=== PATIENT | female | born 1990 | race Caucasian/White ===

== ENCOUNTER 2017-12-23 09:46 | Day surgery (SDC) | payer OTHER, BC ==
[~2017-12-23 09:46] MED LIST: Lactated Ringers 1,000 ML IV SCH
[2017-12-23] MEDS ORDERED: Ondansetron 4 MG/2 ML SDV IVPUSH ONE (10:31)
[2017-12-23] MEDS ORDERED: Haloperidol Lactate 5 MG/ML SDV IM ONE (10:31)
--- NOTE | 2017-12-23 10:39 | PCM.PREANE ---
Preanesthetic Assessment - Anesthesia/Transfusion/Family Hx Anesthesia History: Prior Anesthesia Without Reaction Family History of Anesthesia Reaction: No Transfusion History: No Prior Transfusion(s) - Review of Systems General: No Symptoms Pulmonary: No Symptoms Cardiovascular: No Symptoms Gastrointestinal: Abdominal Pain, Nausea Neurological: No Symptoms Other: Reports: None - Physical Assessment NPO Status Date: 12/22/17 Height: 1.6 m Weight: 80.286 kg ASA Class: 2 Mental Status: Alert & Oriented x3 Airway Class: Mallampati = 2 Dentition: Reports: Normal Dentition ROM/Head Extension: Full Lungs: Clear to Auscultation, Normal Respiratory Effort Cardiovascular: Regular Rate, Regular Rhythm - Allergies Allergies/Adverse Reactions: Allergies Allergy/AdvReac Type Severity Reaction Status Date / Time amoxicillin Allergy Tachycardia Verified 12/16/17 13:56 codeine Allergy Vomiting Verified 12/16/17 13:56 hydrocodone Allergy Vomiting Verified 12/16/17 13:56 Sulfa (Sulfonamide Allergy rashes Verified 12/16/17 13:56 Antibiotics) - Anesthesia Plan Pre-Op Medication Ordered: Other (iv dilaudid, and zofran and haldol) - Acknowledgements Anesthesia Type Planned: General Anesthesia Pt an Appropriate Candidate for the Planned Anesthesia: Yes Alternatives and Risks of Anesthesia Discussed w Pt/Guardian: Yes Pt/Guardian Understands and Agrees with Anesthesia Plan: Yes PreAnesthesia Questionnaire Other HEENT History: has upper and lower front permanent retainers, wears glasses Cardiovascular History: Reports: None Respiratory History: Reports: None Gastrointestinal History: Reports: GERD Genitourinary History: Reports: None WAFER SLICER History: Reports: None Musculoskeletal History: Reports: None Neurological History: Reports: Other (See Below) Other Neuro History: hx of motion sickness Psychiatric History: Reports: Anxiety, Depression Endocrine/Metabolic History: Reports: Hypothyroidism, Obesity/BMI 30+ Oncologic (Cancer) History: Reports: None Dermatologic History: Reports: Eczema - Infectious Disease History Infectious Disease History: Reports: Chicken Pox - Past Surgical History HEENT Surgical History: Reports: Tonsillectomy GI Surgical History: Reports: Cholecystectomy Female Surgical History: Reports: Breast Biopsy - SUBSTANCE USE Smoking Status *Q: Never Smoker Recreational Drug Use History: No - HOME MEDS Home Medications: Home Meds FLUoxetine [PROzac] 80 mg PO QAM 06/09/15 [History] Levothyroxine 25 mcg PO DAILY 06/09/15 [History] buPROPion [Wellbutrin SR] 150 mg PO QAM 06/09/15 [History] - CURRENT (IN HOUSE) MEDS Current Meds: Current Medications Haloperidol Lactate (Haldol) 0.5 mg IM ONETIME ONE Stop: 12/23/17 10:32 Hydromorphone HCl (Dilaudid) 2 mg IVPUSH ONETIME PRN PRN Reason: Pain (moderate 4-6) Lactated Ringer's (Ringers, Lactated) 1,000 mls @ 100 mls/hr IV ASDIRECTED [facility] Ondansetron HCl (Zofran) 4 mg IVPUSH ONETIME ONE Stop: 12/23/17 10:32
[2017-12-23] MEDS: HYDROmorphone 2 MG/ML SDV IVPUSH PRN ×2 (10:52→11:19)
[2017-12-23 11:06] LABS: CHLORIDE,CL 107 mmol/L (98-107); SODIUM,NA 139 mmol/L (136-145)
[2017-12-23] MEDS ORDERED: Rocuronium 10 MG/ML 10 ML Syringe ONE (12:22)
[2017-12-23] MEDS ORDERED: Glycopyrrolate 0.2 MG/ML SDV ONE (12:22)
[2017-12-23] MEDS ORDERED: Neostigmine Methylsulfate 1 MG/ML 5 ML Syringe ONE (12:22)
[2017-12-23] MEDS ORDERED: Ondansetron 4 MG/2 ML SDV ONE (12:22)
[2017-12-23] MEDS ORDERED: Ketorolac 30 MG/ML SDV ONE (12:22)
[2017-12-23] MEDS ORDERED: Midazolam 1 MG/ML 2 ML SDV ONE (12:23)
[2017-12-23] MEDS ORDERED: Propofol 200 MG/20 ML SDV ONE (12:23)
[2017-12-23] MEDS ORDERED: fentaNYL 100 MCG/2 ML SDV ONE ×3 (12:23→14:02)
[2017-12-23] MEDS ORDERED: Succinylcholine 200 MG/10 ML MDV ONE (12:39)
[2017-12-23] MEDS ORDERED: Octyl 2-Cyanoacrylate 1 Tube ONE (13:23)
[2017-12-23] MEDS ORDERED: Dexamethasone 4 MG/ML 5 ML MDV ONE (13:31)
[2017-12-23] MEDS ORDERED: Promethazine 25 MG/ML SDV IM PRN (13:37)
[2017-12-23] MEDS ORDERED: Ketorolac 30 MG/ML SDV IVPUSH ONE (13:37)
[2017-12-23] MEDS ORDERED: Morphine 4 MG/ML Syringe IVPUSH PRN (13:37)
[2017-12-23] MEDS ORDERED: Ketorolac 30 MG/ML SDV IVPUSH PRN (13:37)
[2017-12-23] MEDS ORDERED: Ondansetron 4 MG/2 ML SDV IVPUSH PRN (13:37)
[2017-12-23] MEDS ORDERED: Acetaminophen/oxyCODONE 325-5 MG Tab PO PRN ×2 (13:37)
[2017-12-23] MEDS ORDERED: Sugammadex Sodium 200 MG/2 ML VIAL ONE (13:39)
--- NOTE | 2017-12-23 13:44 | PCM.OPNOTE ---
- General Post-Op/Procedure Note Date of Surgery/Procedure: 12/23/17 Operative Procedure(s): Dignostis Laparoscopy Pre Op Diagnosis: Pelvic pain Post-Op Diagnosis: Same Anesthesia Technique: General ET Tube Primary Surgeon: Carlos Dockery EBL in mLs: 25 Complications: None Condition: Good
--- NOTE | 2017-12-23 13:45 | PCM.DCSUM1 ---
Discharge Summary - Discharge Data Discharge Date: 12/23/17 Discharge Disposition: Home, Self-Care 01 Condition: Good - Patient Summary/Data Operative Procedure(s) Performed: Dignostis Laparoscopy - Patient Instructions Diet: Usual Diet as Tolerated Driving: May Drive Today, Do Not Drive Showering/Bathing: May Shower Notify Provider of: Fever, Increased Pain, Nausea and/or Vomiting - Discharge Plan Home Medications: Home Meds FLUoxetine [PROzac] 80 mg PO QAM 06/09/15 [History] Levothyroxine 25 mcg PO DAILY 06/09/15 [History] buPROPion [Wellbutrin SR] 150 mg PO QAM 06/09/15 [History] - General Info Date of Service: 12/23/17 Functional Status: Reports: Pain Controlled - Review of Systems General: Reports: No Symptoms HEENT: Reports: No Symptoms Pulmonary: Reports: No Symptoms Cardiovascular: Reports: No Symptoms Gastrointestinal: Reports: No Symptoms Genitourinary: Reports: No Symptoms Musculoskeletal: Reports: No Symptoms Skin: Reports: No Symptoms Neurological: Reports: No Symptoms Psychiatric: Reports: No Symptoms - Patient Data Weight - Most Recent: 80.286 kg Lab Results - Last 24 hrs: Laboratory Results - last 24 hr 12/23/17 12/23/17 12/23/17 Range/Units 10:20 10:20 10:20 WBC 6.88 (4.0-11.0) K/uL RBC 4.28 L (4.30-5.90) M/uL Hgb 13.1 (12.0-16.0) g/dL Hct 39.0 (36.0-46.0) % MCV 91.1 (80.0-98.0) fL MCH 30.6 (27.0-32.0) pg MCHC 33.6 (31.0-37.0) g/dL RDW Std Deviation 40.2 (28.0-62.0) fl RDW Coeff of Bonnie 12 (11.0-15.0) % Plt Count 234 (150-400) K/uL MPV 9.50 (7.40-12.00) fL Neut % (Auto) 66.5 (48.0-80.0) % Lymph % (Auto) 24.0 (16.0-40.0) % Lee % (Auto) 7.3 (0.0-15.0) % Eos % (Auto) 1.9 (0.0-7.0) % Baso % (Auto) 0.3 (0.0-1.5) % Neut # (Auto) 4.6 (1.4-5.7) K/uL Lymph # (Auto) 1.7 (0.6-2.4) K/uL Lee # (Auto) 0.5 (0.0-0.8) K/uL Eos # (Auto) 0.1 (0.0-0.7) K/uL Baso # (Auto) 0.0 (0.0-0.1) K/uL Sodium 139 (136-145) mmol/L Potassium 4.1 (3.5-5.1) mmol/L Chloride 107 (98-107) mmol/L Carbon Dioxide 22.9 (21.0-32.0) mmol/L BUN 13 (7.0-18.0) mg/dL Creatinine 1.1 H (0.6-1.0) mg/dL Est Cr Clr Drug Dosing 64.11 mL/min Estimated GFR (MDRD) > 60.0 ml/min Glucose 86 (74-106) mg/dL Calcium 8.7 (8.5-10.1) mg/dL Total Bilirubin 0.3 (0.2-1.0) mg/dL AST 16 (15-37) IU/L ALT 14 (14-63) IU/L Alkaline Phosphatase 35 L (46-116) U/L Total Protein 6.4 (6.4-8.2) g/dL Albumin 3.3 L (3.4-5.0) g/dL Globulin 3.1 (2.0-3.5) g/dL Albumin/Globulin Ratio 1.1 L (1.3-2.8) HCG, Qual (NEG) Blood Type AB POSITIVE Antibody Screen NEGATIVE 12/23/17 Range/Units 11:05 WBC (4.0-11.0) K/uL RBC (4.30-5.90) M/uL Hgb (12.0-16.0) g/dL Hct (36.0-46.0) % MCV (80.0-98.0) fL MCH (27.0-32.0) pg MCHC (31.0-37.0) g/dL RDW Std Deviation (28.0-62.0) fl RDW Coeff of Bonnie (11.0-15.0) % Plt Count (150-400) K/uL MPV (7.40-12.00) fL Neut % (Auto) (48.0-80.0) % Lymph % (Auto) (16.0-40.0) % Lee % (Auto) (0.0-15.0) % Eos % (Auto) (0.0-7.0) % Baso % (Auto) (0.0-1.5) % Neut # (Auto) (1.4-5.7) K/uL Lymph # (Auto) (0.6-2.4) K/uL Lee # (Auto) (0.0-0.8) K/uL Eos # (Auto) (0.0-0.7) K/uL Baso # (Auto) (0.0-0.1) K/uL Sodium (136-145) mmol/L Potassium (3.5-5.1) mmol/L Chloride (98-107) mmol/L Carbon Dioxide (21.0-32.0) mmol/L BUN (7.0-18.0) mg/dL Creatinine (0.6-1.0) mg/dL Est Cr Clr Drug Dosing mL/min Estimated GFR (MDRD) ml/min Glucose (74-106) mg/dL Calcium (8.5-10.1) mg/dL Total Bilirubin (0.2-1.0) mg/dL AST (15-37) IU/L ALT (14-63) IU/L Alkaline Phosphatase (46-116) U/L Total Protein (6.4-8.2) g/dL Albumin (3.4-5.0) g/dL Globulin (2.0-3.5) g/dL Albumin/Globulin Ratio (1.3-2.8) HCG, Qual NEGATIVE (NEG) Blood Type Antibody Screen Med Orders - Current: Current Medications Hydromorphone HCl (Dilaudid) 2 mg IVPUSH ONETIME PRN PRN Reason: Pain (moderate 4-6) Last Admin: 12/23/17 11:19 Dose: 2 mg Lactated Ringer's (Ringers, Lactated) 1,000 mls @ 100 mls/hr IV ASDIRECTED KAYLYN Last Admin: 12/23/17 10:15 Dose: 100 mls/hr Ketorolac Tromethamine (Toradol) 30 mg IVPUSH ONETIME ONE Stop: 12/23/17 13:38 Ketorolac Tromethamine (Toradol) 30 mg IVPUSH Q6H PRN PRN Reason: Pain (severe 7-10) Stop: 12/28/17 13:37 Morphine Sulfate (Morphine) 4 mg IVPUSH Q2H PRN PRN Reason: Pain (severe 7-10) Ondansetron HCl (Zofran) 4 mg IVPUSH Q6H PRN PRN Reason: Nausea/Vomiting Oxycodone/Acetaminophen (Percocet 325-5 Mg) 1 tab PO Q4H PRN PRN Reason: Pain (moderate 4-6) Oxycodone/Acetaminophen (Percocet 325-5 Mg) 2 tab PO Q4H PRN PRN Reason: Pain (moderate 4-6) Promethazine HCl (Phenergan) 25 mg IM Q6H PRN PRN Reason: Nausea/Vomiting Discontinued Medications Dexamethasone (Dexamethasone) Confirm Administered Dose 20 mg .ROUTE .STK-MED ONE Stop: 12/23/17 13:32 Fentanyl (Sublimaze) Confirm Administered Dose 100 mcg .ROUTE .STK-MED ONE Stop: 12/23/17 12:24 Fentanyl (Sublimaze) Confirm Administered Dose 100 mcg .ROUTE .STK-MED ONE Stop: 12/23/17 12:24 Glycopyrrolate (Robinul) Confirm Administered Dose 0.8 mg .ROUTE .STK-MED ONE Stop: 12/23/17 12:23 Haloperidol Lactate (Haldol) 0.5 mg IM ONETIME ONE Stop: 12/23/17 10:32 Last Admin: 12/23/17 11:39 Dose: 0.5 mg Ketorolac Tromethamine (Toradol) Confirm Administered Dose 30 mg .ROUTE .STK- MED ONE Stop: 12/23/17 12:23 Lidocaine HCl (Xylocaine-Mpf 1%) Confirm Administered Dose 5 ml .ROUTE .STK-MED ONE Stop: 12/23/17 12:23 Midazolam HCl (Versed 1 Mg/Ml) Confirm Administered Dose 2 mg .ROUTE .STK-MED ONE Stop: 12/23/17 12:24 Neostigmine Methylsulfate (Neostigmine) Confirm Administered Dose 5 mg .ROUTE .STK-MED ONE Stop: 12/23/17 12:23 Octyl Cyanoacrylate (Dermabond Advance) Confirm Administered Dose 1 applic .ROUTE .STK-MED ONE Stop: 12/23/17 13:24 Ondansetron HCl (Zofran) 4 mg IVPUSH ONETIME ONE Stop: 12/23/17 10:32 Last Admin: 12/23/17 10:44 Dose: 4 mg Ondansetron HCl (Zofran) Confirm Administered Dose 4 mg .ROUTE .STK-MED ONE Stop: 12/23/17 12:23 Propofol (Diprivan 20 Ml) Confirm Administered Dose 200 mg .ROUTE .STK-MED ONE Stop: 12/23/17 12:24 Rocuronium [place] (Zemuron) Confirm Administered Dose 100 mg .ROUTE .STK-MED ONE Stop: 12/23/17 12:23 Succinylcholine Chloride (Quelicin) Confirm Administered Dose 200 mg .ROUTE .STK -MED ONE Stop: 12/23/17 12:40 - Exam General: Reports: Alert, Oriented HEENT: Reports: Pupils Equal, Pupils Reactive, EOMI, Mucous Membr. Moist/[place] Neck: Reports: Supple Lungs: Reports: Clear to Auscultation, Normal Respiratory Effort Cardiovascular: Reports: Regular Rate, Regular Rhythm GI/Abdominal Exam: Normal Bowel Sounds, Soft, Non-Tender, No Organomegaly, No Distention, No Abnormal Bruit, No Mass, Pelvis Stable (Female) Exam: Normal External Exam, Normal Speculum Exam, Normal Bimanual Exam Rectal (Female) Exam: Normal Exam, Normal Rectal Tone Back Exam: Reports: Normal Inspection, Full Range of Motion Extremities: Normal Inspection, Normal Range of Motion, Non-Tender, No Pedal Edema, Normal Capillary Refill Skin: Reports: Warm, Dry, Intact Wound/Incisions: Reports: Healing Well Neurological: Reports: No New Focal Deficit Psy/Mental Status: Reports: Alert, Normal Affect, Normal Mood
--- NOTE | 2017-12-23 13:56 | PCM.POSTAN ---
POST ANESTHESIA ASSESSMENT - VITAL SIGNS Pulse Rate: 88 SaO2: 100 Resp Rate: 17 Blood Pressure: 118/54 - RESPIRATORY Respiratory Status: Supplemental Oxygen Free Text/Narrative:: per NC - CARDIOVASCULAR CV Status: Pulse Rate WNL, Blood Pressure Stable - GASTROINTESTINAL GI Status: No Symptoms - PAIN Pain Score: 3 (Pt states "I don't know" when asked to rate pain, but resting comfortably in no apparent distress) - OBSERVATIONS Free Text/Narrative:: Pt currently sitting up in bed - slight scratchy throat, but currently no nausea and pain well controlled.
[2017-12-23 15:37] VITALS: BP 112/59
--- NOTE | 2017-12-23 20:05 | OR ---
SURGEON: Carlos Dockery MD DATE OF PROCEDURE: PREOPERATIVE DIAGNOSIS: Pelvic pain. POSTOPERATIVE DIAGNOSIS: Pelvic pain. OPERATION PERFORMED: Multiple puncture diagnostic laparoscopy, peritoneal lavage. UROLOGY PHYSICIAN: OR tech. ANESTHESIA: General endotracheal intubation. ESTIMATED BLOOD LOSS: 25 mL. COMPLICATIONS: None. FINDINGS: There is negative finding. There is no scarring. There is no endometriosis. INDICATION FOR SURGERY: This patient had chronic pelvic pain. She is on multiple medications for pain and she has used control pills without any relief. PROCEDURE IN DETAIL: The patient was brought to the OR, properly identified. After adequate level of general anesthesia, a straight catheter was used to empty the bladder. Then Hulka manipulator was placed in the uterus for manipulation. The operation shifted abdominally. Stab wound done beneath the umbilicus. The Veress needle was placed in the peritoneal cavity and that cavity insufflated with 6 L of carbon dioxide. The skin incision large to accommodate 5 mm trocar. Utilizing the Visiport technique, the peritoneal cavity was entered. Then, a 5 mm trocar was placed in the left iliac fossa under direct vision. The operation started by placing the patient in steep Trendelenburg and once we did that, then I started inspection of the pelvis. The bladder flap completely clean. There was no evidence of any endometriosis. The right tubes and ovaries essentially were normal. The ovarian fossa is normal. The right pelvic sidewall essentially is normal. The cul-de-sac is visualized in its entirety and it is completely normal. The left pelvic sidewall visualized in it entirety and it is normal. The left tubes and ovary are essentially normal. The appendix normal. The liver is normal. The gallbladder is normal. After thorough inspection of the pelvis with multiple view documented on pictures, there was no evidence of endometriosis. There was no evidence of scarring. I proceeded to do a peritoneal lavage. Other than that, the procedure was ended. Multiple instruments retrieved from the abdomen and the vagina and the multiple laparoscopic incisions closed in layers. Instrument and sponge count was correct. The patient tolerated the procedure well, went to recovery room in stable general condition. CARIDAD / SUSIE /[id number]
== END 2017-12-23 16:30 | disposition home or self-care (01) ==
LOC: MW.SDS 09:46
PROVIDERS: ATTEND Obstetrics & Gynecology
DX: R10.2 Pelvic and perineal pain (principal); F41.9 Anxiety disorder, unspecified; F32.9 Major depressive disorder, single episode, unspecified; K21.9 Gastro-esophageal reflux disease without esophagitis; E03.9 Hypothyroidism, unspecified; J30.1 Allergic rhinitis due to pollen; J30.2 Other seasonal allergic rhinitis; Z88.8 Allergy status to other drugs, medicaments and biological substances; Z88.2 Allergy status to sulfonamides; Z79.899 Other long term (current) drug therapy
CPT/HCPCS: 36415; 49320; 80053; 84703; 85025; 86850; 86900; 86901; A9270; J0330; J1100; J1170; J1630; J1885; J2250; J2270; J2405; J3010; J7120; J2704

== ENCOUNTER 2018-03-02 17:18 | Emergency (ER) | payer OTHER, BC ==
--- NOTE | 2018-03-02 17:42 | EDM.PDOC ---
ED HPI GENERAL MEDICAL PROBLEM - General Chief Complaint: Abdominal Pain Stated Complaint: STOMACH PAIN/NAUSEA Time Seen by Provider: 03/02/18 17:41 Source of Information: Reports: Patient History Limitations: Reports: No Limitations - History of Present Illness INITIAL COMMENTS - FREE TEXT/NARRATIVE: HISTORY AND PHYSICAL: []27-year-old female presenting with abdominal pain nausea vomiting patient has long history that has been reviewed History of Present Illness: []Patient is on pain management per Dr. Kwok She took Zofran at home without any relief States that pain occurs late at night and wakes her up and sometime in the afternoon She started taking Pepto-Bismol without any relief She's had black stools although she did for 1-1/2 days take Pepto-Bismol which could cause black stools because of the alumina hydrate Patient states she has history of IBS and has had problems with constipation so she took magnesium citrate before coming here so that she could stay that she was cleaned out and not having constipation. Review of Systems: As per history of present illness and below otherwise all systems reviewed and negative. Past medical history: As per history of present illness and as reviewed below otherwise noncontributory. Surgical history: As per history of present illness and as reviewed below otherwise noncontributory. Social history: No reported history of drug or alcohol abuse. Family history: As per history of present illness and as reviewed below otherwise noncontributory. Physical exam: Alert female who is answering questions appropriately in full sentences without any shortness of breath. She does not look to be in acute distress she is nontoxic in appearance. HEENT: Atraumatic, normocehpalic, pupils reactive, negative for conjunctival pallor or scleral icterus, mucous membranes moist, throat clear, neck supple, nontender, trachea midline. Lungs: Clear to auscultation, breath sounds equal bilaterally, chest non tender. Heart: S1S2, regular, negative for clicks, rubs, or JVD. Abdomen: Soft, nondistended,mildly tender to mid epigastric region. No Rebound is noted. No guarding. Negative for masses or hepatossplenmegaly. Negative for costovertebral tenderness. Pelvis: Stable nontender. Genitourinary: Deferred. Rectal: Deferred Extremities: Atraumatic, negative for cords or calf pain. Neurovascular unremarkable. Neuro: Awake, alert, oriented. Cranial nerves II through XII unremarkable. Cerebellum unremarkable. Motor and sensory unremarkable throughout. Exam nonfocal. Fecal occult blood was negative Diagnostics: [] Therapeutics: []GI cocktail with Reglan Impression: []Peptic ulcer Plan: []Discharged home Carafate 4 times a day and at bedtime Omeprazole twice a day Follow-up with your primary care provider Definitive disposition and diagnosis as appropriate pending reevaluation and review of above. Onset: Gradual Duration: Day(s): (6) Location: Reports: Abdomen Quality: Reports: Ache Severity: Moderate Improves with: Reports: None Worsens with: Reports: None Abdominal Pain Score (Numeric/FACES): 4 - Related Data Allergies Allergy/AdvReac Type Severity Reaction Status Date / Time amoxicillin Allergy Tachycardia Verified 12/16/17 13:56 codeine Allergy Vomiting Verified 12/16/17 13:56 hydrocodone Allergy Vomiting Verified 12/16/17 13:56 Sulfa (Sulfonamide Allergy rashes Verified 12/16/17 13:56 Antibiotics) Home Meds: Home Meds FLUoxetine [PROzac] 80 mg PO QAM 06/09/15 [History] Levothyroxine 25 mcg PO DAILY 06/09/15 [History] buPROPion [Wellbutrin SR] 150 mg PO QAM 06/09/15 [History] Gabapentin [Neurontin] 200 mg PO TID 03/02/18 [History] Ondansetron [Zofran ODT] 4 mg PO ASDIRECTED PRN 03/02/18 [History] Promethazine HCl [Phenergan] 25 mg RECTAL DAILY PRN 03/02/18 [History] Past Medical History Other HEENT History: has upper and lower front permanent retainers, wears glasses Cardiovascular History: Reports: None Respiratory History: Reports: None Gastrointestinal History: Reports: GERD, Irritable Bowel Syndrome Genitourinary History: Reports: None CHOPPER FEEDER History: Reports: None Musculoskeletal History: Reports: None Neurological History: Reports: Other (See Below) Other Neuro History: hx of motion sickness Psychiatric History: Reports: Anxiety, Depression Endocrine/Metabolic History: Reports: Hypothyroidism, Obesity/BMI 30+ Oncologic (Cancer) History: Reports: None Dermatologic History: Reports: Eczema - Infectious Disease History Infectious Disease History: Reports: Chicken Pox - Past Surgical History HEENT Surgical History: Reports: Tonsillectomy GI Surgical History: Reports: Cholecystectomy Female Surgical History: Reports: Breast Biopsy Social & Family History - Tobacco Use Smoking Status *Q: Never Smoker - Caffeine Use Caffeine Use: Reports: None - Recreational Drug Use Recreational Drug Use: No ED ROS GENERAL - Review of Systems Review Of Systems: ROS reveals no pertinent complaints other than HPI. ED EXAM, GI/ABD - Physical Exam Exam: See Below (see dictation) Course - Vital Signs Last Recorded V/S: Last Vital Signs Temp 36.7 C 03/02/18 17:27 Pulse 103 H 03/02/18 17:27 Resp 18 03/02/18 17:27 BP 143/58 H 03/02/18 17:27 Pulse Ox 97 03/02/18 17:27 - Orders/Labs/Meds Orders: Active Orders 24 hr Category Date Time Status HCG QUALITATIVE,URINE [URCHEM] Stat Lab 03/02/18 17:30 Ordered UA W/MICROSCOPIC [URIN] Stat Lab 03/02/18 17:30 Ordered Prochlorperazine [Compazine] Med 03/02/18 18:12 Once 5 mg IM ONETIME ONE Labs: Laboratory Tests 03/02/18 03/02/18 Range/Units 17:30 17:30 Urine Color YELLOW Urine Appearance CLEAR Urine pH 7.0 (5.0-8.0) Ur Specific [place] 1.015 (1.001-1.035) Urine Protein NEGATIVE (NEGATIVE) mg/dL Urine Glucose (UA) NEGATIVE (NEGATIVE) mg/dL Urine Ketones TRACE H (NEGATIVE) mg/dL Urine Occult Blood NEGATIVE (NEGATIVE) Urine Nitrite NEGATIVE (NEGATIVE) Urine Bilirubin NEGATIVE (NEGATIVE) Urine Urobilinogen 0.2 (<2.0) EU/dL Ur Leukocyte Esterase NEGATIVE (NEGATIVE) Urine RBC 0-1 (0-2/HPF) Urine WBC 0-2 (0-5/HPF) Ur Epithelial Cells FEW (NONE-FEW) Amorphous Sediment MANY (NEGATIVE) Urine Bacteria FEW (NEGATIVE) Urine HCG, Qual NEGATIVE (NEGATIVE) Meds: Medications Discontinued Medications Generic Name Dose Route Start Last Admin Trade Name Freq PRN Reason Stop Dose Admin Al Hydroxide/Mg Hydroxide 15 0 ml 03/02/18 17:57 03/02/18 18:03 ml/ Metoclopramide HCl 5 mg/ PO 03/02/18 17:58 1 each Lidocaine HCl 5 ml ONETIME ONE Administration Departure - Departure Time of Disposition: 18:21 Disposition: Home, Self-Care 01 Condition: Good Clinical Impression: Peptic ulcer - Discharge Information Instructions: Peptic Ulcer, [id number] Referrals: Clayton Ruiz [Primary Care Provider] - Forms: ED Department Discharge Additional Instructions: The following information is given to patients seen in the emergency department who are being discharged to home. This information is to outline your options for follow-up care. We provide all patients seen in our emergency department with a follow-up referral. The need for follow-up, as well as the timing and circumstances, are variable depending upon the specifics of your emergency department visit. If you don't have a primary care physician on staff, we will provide you with a referral. We always advise you to contact your personal physician following an emergency department visit to inform them of the circumstance of the visit and for follow-up with them and/or the need for any referrals to a consulting specialist. The emergency department will also refer you to a specialist when appropriate. This referral assures that you have the opportunity for followup care with a specialist. All of these measure are taken in an effort to provide you with optimal care, which includes your followup. Under all circumstances we always encourage you to contact your private physician who remains a resource for coordinating your care. When calling for followup care, please make the office aware that this follow-up is from your recent emergency room visit. If for any reason you are refused follow-up, please contact the [facility] emergency department at and asked to speak to the emergency department charge nurse. You've been found to have a peptic ulcer suspected You were given a GI cocktail while in the emergency department Prescription for Carafate 1 g slurry 4 times a day and at bedtime 12 ounces ordered no refill Omeprazole 20 mg 1 twice a day for the next 2 weeks Within the next 2 weeks you need to follow-up with your primary care provider Dr. Ruiz is located at [address] [place] [id number] Return to the emergency department instructed and discussed - My Orders Last 24 Hours: My Active Orders 03/02/18 18:12 Prochlorperazine [Compazine] 5 mg IM ONETIME ONE - Assessment/Plan Last 24 Hours: My Active Orders 03/02/18 18:12 Prochlorperazine [Compazine] 5 mg IM ONETIME ONE
[2018-03-02] MEDS ORDERED: Alum Hydrox/Mag Hydrox/Simeth 15 ML, Metoclopramide 5 MG, Lidocaine 2% 5 ML PO ONE ×3 (17:57)
[2018-03-02] MEDS ORDERED: Prochlorperazine 10 MG/2 ML SDV IM ONE (18:12)
[2018-03-02 18:44] VITALS: BP 136/70
== END 2018-03-02 18:42 | disposition home or self-care (01) ==
LOC: MW.ED 17:18
DX: K27.9 Peptic ulcer, site unspecified, unspecified as acute or chronic, without hemorrhage or perforation (principal); E66.9 Obesity, unspecified; Z88.2 Allergy status to sulfonamides; Z88.5 Allergy status to narcotic agent; Z88.8 Allergy status to other drugs, medicaments and biological substances; Z79.899 Other long term (current) drug therapy
CPT/HCPCS: 81001; 81025; 99284; A9270; 99283

== ENCOUNTER 2018-03-23 13:20 | Emergency (ER) | payer OTHER, BC ==
[2018-03-23 13:40] VITALS: BP 115/72
[2018-03-23] MEDS ORDERED: Ondansetron 4 MG/2 ML SDV IVPUSH ONE (13:57)
[2018-03-23] MEDS ORDERED: diphenhydrAMINE 50 MG/ML SDV IVPUSH ONE (13:57)
[2018-03-23] MEDS ORDERED: Sodium Chloride 0.9% 1,000 ML IV ONE (13:57)
[2018-03-23] MEDS ORDERED: Ketorolac 30 MG/ML SDV IVPUSH ONE (13:57)
--- NOTE | 2018-03-23 14:09 | EDM.PDOC ---
ED HPI GENERAL MEDICAL PROBLEM - General Chief Complaint: Headache Stated Complaint: HEADACHE Time Seen by Provider: 03/23/18 13:22 Source of Information: Reports: Patient History Limitations: Reports: No Limitations - History of Present Illness INITIAL COMMENTS - FREE TEXT/NARRATIVE: HISTORY AND PHYSICAL: History of present illness: Patient is a 27-year-old female who presents to the emergency room with complaints of migraine headache. She states approximately 3 days ago she had hit her head on a mailbox which she did not lose consciousness. During this time she rolled her left ankle. Since this incident she has had a dull headache , nausea, and light sensitivity which she has tried [id number] products, prescribed Imitrex, Zofran and Phenergan. She states that none of these medications have alleviated her headache and nausea. History of migraine headaches. Currently on her menstrual period. Review of systems: As per history of present illness and below otherwise all systems reviewed and negative. Past medical history: As per history of present illness and as reviewed below otherwise noncontributory. Surgical history: As per history of present illness and as reviewed below otherwise noncontributory. Social history: No reported history of drug or alcohol abuse. Family history: As per history of present illness and as reviewed below otherwise noncontributory. Physical exam: General: Well-developed and well-nourished 27 she'll female. Alert and oriented. Nontoxic appearing and in no acute distress. HEENT: Atraumatic, normocephalic, pupils equal and reactive bilaterally, negative for conjunctival pallor or scleral icterus, mucous membranes moist, throat clear, neck supple, nontender, trachea midline. No drooling or trismus noted. No meningeal signs. No nuchal rigidity Lungs: Clear to auscultation, breath sounds equal bilaterally, chest nontender. Heart: S1S2, regular rate and rhythm without overt murmur Abdomen: Soft, nondistended, nontender. Negative for masses or hepatosplenomegaly. Negative for costovertebral tenderness. Pelvis: Stable nontender. Genitourinary: Deferred. Rectal: Deferred. Skin: Intact, warm, dry. No lesions or rashes noted. Extremities: Atraumatic, negative for cords or calf pain. Neurovascular unremarkable. Neuro: Awake, alert, oriented. Cranial nerves II through XII unremarkable. Cerebellum unremarkable. Motor and sensory unremarkable throughout. Exam nonfocal. Notes: We discussed doing a head CT at this time which she declines. She states she would like medications for her migraine headache. There is nothing unusual or worse about this headache than others previous. She has had a head CT in 10/2016 Diagnostics: Declines Therapeutics: IV fluid, Zofran, Toradol, Benadryl, Ativan Impression: Migraine Headache Plan: 1. Please take the rest of the day to rest in a dark quiet room. No driving as the medications your given through the ER can cause drowsiness. 2. Follow-up with your primary caregiver in the next 1-2 days. Return to the ED as needed and as discussed. Definitive disposition and diagnosis as appropriate pending reevaluation and review of above. Duration: Day(s): Location: Reports: Head Headache Pain Score (Numeric/FACES): 5 - Related Data Allergies Allergy/AdvReac Type Severity Reaction Status Date / Time amoxicillin Allergy Tachycardia Verified 03/23/18 13:40 codeine Allergy Vomiting Verified 03/23/18 13:40 Sulfa (Sulfonamide Allergy rashes Verified 03/23/18 13:40 Antibiotics) Home Meds: Home Meds FLUoxetine [PROzac] 80 mg PO QAM 06/09/15 [History] Levothyroxine 25 mcg PO DAILY 06/09/15 [History] buPROPion [Wellbutrin SR] 150 mg PO QAM 06/09/15 [History] Gabapentin [Neurontin] 200 mg PO TID 03/02/18 [History] Ondansetron [Zofran ODT] 4 mg PO ASDIRECTED PRN 03/02/18 [History] Promethazine HCl [Phenergan] 25 mg RECTAL DAILY PRN 03/02/18 [History] Naltrexone 50 mg PO DAILY 03/23/18 [History] Past Medical History Other HEENT History: has upper and lower front permanent retainers, wears glasses Cardiovascular History: Reports: None Respiratory History: Reports: None Gastrointestinal History: Reports: GERD, Irritable Bowel Syndrome Genitourinary History: Reports: None CATERING ATTENDANT History: Reports: None Musculoskeletal History: Reports: None Neurological History: Reports: Headaches, Chronic, Other (See Below) Other Neuro History: hx of motion sickness, mold exposure Psychiatric History: Reports: Anxiety, Depression Endocrine/Metabolic History: Reports: Hypothyroidism, Obesity/BMI 30+ Oncologic (Cancer) History: Reports: None Dermatologic History: Reports: Eczema - Infectious Disease History Infectious Disease History: Reports: Chicken Pox - Past Surgical History HEENT Surgical History: Reports: Tonsillectomy GI Surgical History: Reports: Cholecystectomy Female Surgical History: Reports: Breast Biopsy Social & Family History - Family History Family Medical History: Noncontributory - Tobacco Use Smoking Status *Q: Never Smoker Second Hand Smoke Exposure: No - Caffeine Use Caffeine Use: Reports: Soda - Recreational Drug Use Recreational Drug Use: No ED ROS GENERAL - Review of Systems Review Of Systems: ROS reveals no pertinent complaints other than HPI. - Physical Exam Exam: See Below (See dictation) Course - Vital Signs Last Recorded V/S: Last Vital Signs Temp 98.1 F 03/23/18 13:31 Pulse 97 03/23/18 13:31 Resp 18 03/23/18 13:31 BP 115/72 03/23/18 13:31 Pulse Ox 97 03/23/18 13:31 - Orders/Labs/Meds Meds: Medications Discontinued Medications Generic Name Dose Route Start Last Admin Trade Name [place] PRN Reason Stop Dose Admin Diphenhydramine HCl 50 mg 03/23/18 13:57 03/23/18 14:17 Benadryl IVPUSH 03/23/18 13:58 50 mg ONETIME ONE Administration Sodium Chloride 1,000 mls @ 999 mls/hr 03/23/18 13:57 03/23/18 14:13 Normal Saline IV 03/23/18 14:57 999 mls/hr STAT ONE Administration Ketorolac Tromethamine 30 mg 03/23/18 13:57 03/23/18 14:19 Toradol IVPUSH 03/23/18 13:58 30 mg ONETIME ONE Administration Lorazepam 0.5 mg 03/23/18 14:38 Ativan IVPUSH 03/23/18 14:39 ONETIME ONE Ondansetron HCl 4 mg 03/23/18 13:57 03/23/18 14:15 Zofran IVPUSH 03/23/18 13:58 4 mg ONETIME ONE Administration Departure - Departure Time of Disposition: 15:46 Disposition: Home, Self-Care 01 Clinical Impression: Migraine - Discharge Information Instructions: Migraine Headache, [id number] Referrals: Grondahl,Ryann L, DIE STORAGE WORKER [Primary Care Provider] - Forms: ED Department Discharge Additional Instructions: The following information is given to patients seen in the emergency department who are being discharged to home. This information is to outline your options for follow-up care. We provide all patients seen in our emergency department with a follow-up referral. The need for follow-up, as well as the timing and circumstances, are variable depending upon the specifics of your emergency department visit. If you don't have a primary care physician on staff, we will provide you with a referral. We always advise you to contact your personal physician following an emergency department visit to inform them of the circumstance of the visit and for follow-up with them and/or the need for any referrals to a consulting specialist. The emergency department will also refer you to a specialist when appropriate. This referral assures that you have the opportunity for follow-up care with a specialist. All of these measure are taken in an effort to provide you with optimal care, which includes your follow-up. Under all circumstances we always encourage you to contact your private physician who remains a resource for coordinating your care. When calling for follow-up care, please make the office aware that this follow-up is from your recent emergency room visit. If for any reason you are refused follow-up, please contact the [facility] at and asked to speak to the emergency department charge nurse. [facility] [address] [place] [phone] 1. Please take the rest of the day to rest in a dark quiet room. No driving as the medications your given through the ER can cause drowsiness. 2. Follow-up with your primary caregiver in the next 1-2 days. Return to the ED as needed and as discussed.
[2018-03-23] MEDS ORDERED: LORazepam 2 MG/ML SDV IVPUSH ONE (14:38)
== END 2018-03-23 16:08 | disposition home or self-care (01) ==
LOC: MW.ED 13:20
DX: G43.909 Migraine, unspecified, not intractable, without status migrainosus (principal); E03.9 Hypothyroidism, unspecified; E66.9 Obesity, unspecified; Z88.1 Allergy status to other antibiotic agents; Z88.2 Allergy status to sulfonamides; Z88.5 Allergy status to narcotic agent; Z79.899 Other long term (current) drug therapy
CPT/HCPCS: 96361; 96374; 96375; 99284; J1200; J1885; J2060; J2405; J7040; 99282

== ENCOUNTER 2018-03-25 11:19 | Day surgery (SDC) | payer OTHER, BC ==
[~2018-03-25 11:19] MED LIST changes: +Betamethasone Acetate/Betamethasone Sod Phosphate 30 MG/5 ML MDV ONE; +Iopamidol 408 MG/ML 50 ML SDV ONE; -Lactated Ringers 1,000 ML IV SCH; +Lidocaine 2% 5 ML SDV ONE; +Ropivacaine 0.5% 5 MG/ML 30 ML SDV ONE
--- NOTE | 2018-03-25 16:37 | OR ---
SURGEON: Olga Dowell D.O. DATE OF PROCEDURE: 03/25/2018 OR STAFF PRESENT: 1. Kelly Castillo RN. 2. Mimi Read RN. 3. Agnieszka Mckeon RT. WOUND CLASSIFICATION: I. PREOPERATIVE DIAGNOSES: 1. Chronic pelvic pain. 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 3. Chronic abdominal pain. POSTOPERATIVE DIAGNOSES: 1. Chronic pelvic pain. 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 . Chronic abdominal pain. PROCEDURES PERFORMED: 1. Caudal epidural steroid injection. 2. Fluoroscopic guidance for needle placement. 3. Local with oral valium for sedation. SCREENING QUESTIONS: The patient answered "no" to all of the following questions: 1. Are you allergic to latex? 2. Do you have a bleeding disorder? 3. Do you have any current local or systemic infections? 4. Are you taking any anti-inflammatories or blood thinners? 5. Do you have any joint replacements, heart valve replacements, or a pacemaker? DESCRIPTION OF PROCEDURE: The patient had the procedure thoroughly explained including all possible risks, benefits and alternatives. Consent was signed in my clinic indicating understanding and willingness to proceed. The patient presented to [facility] [place] and was escorted to the dressing room to disrobe and change into a hospital gown. Preoperative vital signs were taken and stable. The patient reported that Valium was taken prior to the procedure. The patient was brought back to the procedure room and placed in the prone position on the procedure room table. A pillow was placed under the hips in order to flatten the lumbar lordosis. The back was prepped with ChloraPrep and sterilely draped. All personnel in the operating room were dressed in appropriate attire including surgical scrubs, head and shoe covers. This was to ensure sterility while in the treatment room. During the time fluoroscopy was in use, all personnel in the operating room wore lead ross with thyroid collars. Sterile technique was used throughout the procedure. The patient was awake and conversant throughout the procedure. There was no evidence of infection at the site of needle insertion. Skeletal landmarks were identified under fluoroscopy for the caudal epidural. Skin was anesthetized with 2% lidocaine with a sterile 27-gauge 1.5 inch needle. Then, a 20-gauge Tuohy epidural needle was placed in the epidural space with loss of resistance technique under fluoroscopic guidance. No heme, cerebrospinal fluid, or paresthesias were noted. Isovue-200 contrast dye was injected in 0.2 cubic centimeter increments and seen to outline the epidural space in both AP and lateral views. There was no intravascular flow pattern observed under live fluoroscopy. Then, 12 milligrams of Celestone and local was slowly injected after negative aspiration. The patient tolerated the procedure well. Vital signs were stable during and after the procedure. The staff escorted the patient to the recovery area and the patient was released in stable condition after a brief stay in the recovery room monitored by the nurse. The patient was given both oral and written discharge and follow up instructions with recommendation to follow up given for 2-3 weeks. The patient voiced understanding including understanding of those signs and symptoms that would require emergency care. The patient knows how to contact the office if there are any additional problems or questions in the meantime. PREOPERATIVE PAIN: 5/10. POSTOPERATIVE PAIN: 4/10. FOLLOWUP: Follow up in the pain clinic in 3 weeks. CHANDNI RICHARDS /[id number] PAM
== END 2018-03-25 13:59 ==
LOC: MW.SDS 11:19
PROVIDERS: ATTEND Anesthesiology
DX: G89.29 Other chronic pain (principal); R10.2 Pelvic and perineal pain; R10.9 Unspecified abdominal pain; G57.90 Unspecified mononeuropathy of unspecified lower limb; Z88.1 Allergy status to other antibiotic agents; Z88.2 Allergy status to sulfonamides; Z88.5 Allergy status to narcotic agent
CPT/HCPCS: 62323; J0702; J2795; Q9966

== ENCOUNTER 2018-04-22 11:03 | Day surgery (SDC) | payer OTHER, BC ==
[2018-04-22] MEDS ORDERED: Lidocaine 2% 5 ML SDV ONE (11:25)
[2018-04-22] MEDS ORDERED: Betamethasone Acetate/Betamethasone Sod Phosphate 30 MG/5 ML MDV ONE (11:25)
[2018-04-22] MEDS ORDERED: Iopamidol 408 MG/ML 50 ML SDV ONE (11:25)
[2018-04-22] MEDS ORDERED: Lidocaine 1% 0 ML ONE (11:25)
[2018-04-22] MEDS ORDERED: Ropivacaine 0.5% 5 MG/ML 30 ML SDV ONE (11:25)
--- NOTE | 2018-04-22 21:34 | OR ---
SURGEON: Olga Dowell D.O. DATE OF PROCEDURE: 04/22/2018 OPERATING ROOM STAFF: 1. Manuel Hernandez RN. 2. Ro Castillo RN. 3. Ro Jensen RN. 4. Ethan Carroll, RT. WOUND CLASS: I. PREOPERATIVE DIAGNOSES: 1. Chronic pevlic pain 2. Chronic abdominal pain 3. 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 POSTOPERATIVE DIAGNOSES: 1. Chronic pain syndrome 2. Chronic abdominal pain 3. 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 PROCEDURE PERFORMED: 1. Ganglion of impar block. 2. Fluoroscopic guidance with needle placement. 3. Local with oral Valium for sedation. PREOPERATIVE PAIN: 6/10. POSTOPERATIVE PAIN: 5/10. SCREENING QUESTIONS: The patient answered "no" to all of the following questions: 1. Are you allergic to latex? 2. Do you have a bleeding disorder? 3. Do you have any current local or systemic infections? 4. Are you taking any anti-inflammatories or blood thinners? 5. Do you have any joint replacements, heart valve replacements, or a pacemaker? DESCRIPTION OF PROCEDURE: The patient had the procedure thoroughly explained including all possible risks, benefits and alternatives. Consent was signed in my clinic indicating understanding and willingness to proceed. The patient presented to [facility] [place] and was escorted to the dressing room to disrobe and change into a hospital gown. Preoperative vital signs were taken and stable. The patient reported that Valium was taken prior to the procedure. The patient was brought back to the procedure room and placed in the prone position on the procedure room table. The back was prepped with ChloraPrep and sterilely draped. All personnel in the operating room were dressed in appropriate attire including surgical scrubs, head and shoe covers. This was to ensure sterility while in the treatment room. During the time fluoroscopy was in use, all personnel in the operating room wore lead ross with thyroid collars. Sterile technique was used throughout the procedure. The patient was awake and conversant throughout the procedure. There was no evidence of infection at the site of needle insertion. Skeletal landmarks were identified under fluoroscopy for the ganglion of impar block . Skin was anesthetized with 2% lidocaine with a sterile 27-gauge 1.5 inch needle. Then a 22 -gauge spinal needle was placed throught the sacrococcygeal ligament for the ganglion of impar block. No heme, or paresthesias were noted. Isovue- 200 contrast dye was injected in 0.2 cubic centimeter increments and seen to outline the target anterior sacrococcygeal area. There was no intravascular flow pattern observed under live fluoroscopy. Then 12 milligrams of Celestone and 0.5% ropivicaine was slowly injected after negative aspiration. The patient tolerated the procedure well. Vital signs were stable during and after the procedure. The staff escorted the patient to the recovery area and the patient was released in stable condition after a brief stay in the recovery room monitored by the nurse. The patient was given both oral and written discharge and follow up instructions with recommendation to follow up given for 3 weeks. The patient voiced understanding including understanding of those signs and symptoms that would require emergency care. The patient knows how to contact the office if there are any additional problems or questions in the meantime. Preoperative pain: 5-8 out of 10 Postoperative pain 4-5 out of 10 HOGLCHR / MODL /[id number] PAM
== END 2018-04-22 14:07 ==
LOC: MW.SDS 11:03
PROVIDERS: ATTEND Anesthesiology
DX: G89.4 Chronic pain syndrome (principal); R10.2 Pelvic and perineal pain; F41.9 Anxiety disorder, unspecified; K21.9 Gastro-esophageal reflux disease without esophagitis; Z88.5 Allergy status to narcotic agent; Z88.2 Allergy status to sulfonamides; Z79.899 Other long term (current) drug therapy
CPT/HCPCS: 64450; J0702; J2795; Q9966

== ENCOUNTER 2018-09-28 02:01 | Emergency (ER) | payer OTHER, BC ==
[2018-09-28] MEDS ORDERED: Sodium Chloride 0.9% 1,000 ML IV ONE (02:11)
--- NOTE | 2018-09-28 02:11 | EDM.PDOC ---
ED HPI GENERAL MEDICAL PROBLEM - General Stated Complaint: UNABLE TO GO TO THE BATHROOM Time Seen by Provider: 09/28/18 02:10 Source of Information: Reports: Patient - History of Present Illness INITIAL COMMENTS - FREE TEXT/NARRATIVE: HISTORY AND PHYSICAL: History of present illness: []Patient with irritable bowel syndrome presents with complaint of unable to have bowel movement, however she did have a small bowel movement today She has no fever nausea vomiting chills sweats no chest pain shortness breath headache dizziness palpitation no urine symptoms Has been taking mag citrate and suppositories and Metamucil Review of systems: As per history of present illness and below otherwise all systems reviewed and negative. Past medical history: As per history of present illness and as reviewed below otherwise noncontributory. Surgical history: As per history of present illness and as reviewed below otherwise noncontributory. Social history: No reported history of drug or alcohol abuse. Family history: As per history of present illness and as reviewed below otherwise noncontributory. Physical exam: HEENT: Atraumatic, normocephalic, pupils reactive, negative for conjunctival pallor or scleral icterus, mucous membranes moist, throat clear, neck supple, nontender, trachea midline. Lungs: Clear to auscultation, breath sounds equal bilaterally, chest nontender. Heart: S1S2, regular, negative for clicks, rubs, or JVD. Abdomen: Soft, nondistended, nontender. Negative for masses or hepatosplenomegaly. Negative for costovertebral tenderness. Pelvis: Stable nontender. Genitourinary: Deferred. Rectal: Deferred. Extremities: Atraumatic, negative for cords or calf pain. Neurovascular unremarkable. Neuro: Awake, alert, oriented. Cranial nerves II through XII unremarkable. Cerebellum unremarkable. Motor and sensory unremarkable throughout. Exam nonfocal. Diagnostics: [CBC CMP UA hCG Abdomen flat and upright ] Therapeutics: [Reglan 10 mg by mouth 3 times a day when necessary #30 no refill Gas-X may benefit ] Impression: [Irritable Bowel syndrome ] Definitive disposition and diagnosis as appropriate pending reevaluation and review of above. Left Abdominal Pain Score (Numeric/FACES): 5 - Related Data Allergies Allergy/AdvReac Type Severity Reaction Status Date / Time amoxicillin Allergy Tachycardia Verified 09/28/18 02:22 codeine Allergy Vomiting Verified 09/28/18 02:22 Sulfa (Sulfonamide Allergy rashes Verified 09/28/18 02:22 Antibiotics) Home Meds: Home Meds FLUoxetine [PROzac] 80 mg PO QAM 06/09/15 [History] Levothyroxine 25 mcg PO DAILY 06/09/15 [History] buPROPion [Wellbutrin SR] 150 mg PO QAM 06/09/15 [History] Gabapentin [Neurontin] 200 mg PO TID 03/02/18 [History] Ondansetron [Zofran ODT] 4 mg PO ASDIRECTED PRN 03/02/18 [History] Promethazine HCl [Phenergan] 25 mg RECTAL DAILY PRN 03/02/18 [History] Naltrexone 50 mg PO DAILY 03/23/18 [History] Past Medical History Other HEENT History: has upper and lower front permanent retainers, wears glasses Cardiovascular History: Reports: None Respiratory History: Reports: None Gastrointestinal History: Reports: GERD, Irritable Bowel Syndrome Genitourinary History: Reports: None [employer] History: Reports: None Musculoskeletal History: Reports: None Neurological History: Reports: Headaches, Chronic, Other (See Below) Other Neuro History: hx of motion sickness, mold exposure Psychiatric History: Reports: Anxiety, Depression Endocrine/Metabolic History: Reports: Hypothyroidism, Obesity/BMI 30+ Oncologic (Cancer) History: Reports: None Dermatologic History: Reports: Eczema - Infectious Disease History Infectious Disease History: Reports: Chicken Pox - Past Surgical History HEENT Surgical History: Reports: Tonsillectomy GI Surgical History: Reports: Cholecystectomy Female Surgical History: Reports: Breast Biopsy Social & Family History - Family History Family Medical History: Noncontributory - Caffeine Use Caffeine Use: Reports: Soda ED ROS GENERAL - Review of Systems Review Of Systems: See Below ED EXAM, GENERAL - Physical Exam Exam: See Below Course - Vital Signs Last Recorded V/S: Last Vital Signs Temp 97.6 F 09/28/18 02:21 Pulse 88 09/28/18 02:21 Resp 18 09/28/18 02:21 BP 117/66 09/28/18 02:21 Pulse Ox 98 09/28/18 02:21 - Orders/Labs/Meds Orders: Active Orders 24 hr Category Date Time Status Abdomen 2V AP Flat Upright [CR] Stat Exams 09/28/18 02:10 Taken Labs: Laboratory Tests 09/28/18 09/28/18 09/28/18 Range/Units 02:32 02:32 03:40 WBC 8.63 (4.0-11.0) K/uL RBC 4.95 (4.30-5.90) M/uL Hgb 14.9 (12.0-16.0) g/dL Hct 43.8 (36.0-46.0) % MCV 88.5 (80.0-98.0) fL MCH 30.1 (27.0-32.0) pg MCHC 34.0 (31.0-37.0) g/dL RDW Std Deviation 40.7 (28.0-62.0) fl RDW Coeff of Bonnie 13 (11.0-15.0) % Plt Count 250 (150-400) K/uL MPV 8.90 (7.40-12.00) fL Neut % (Auto) 49.9 (48.0-80.0) % Lymph % (Auto) 38.6 (16.0-40.0) % [place] % (Auto) 9.2 (0.0-15.0) % Eos % (Auto) 2.0 (0.0-7.0) % Baso % (Auto) 0.3 (0.0-1.5) % Neut # (Auto) 4.3 (1.4-5.7) K/uL Lymph # (Auto) 3.3 H (0.6-2.4) K/uL [place] # (Auto) 0.8 (0.0-0.8) K/uL Eos # (Auto) 0.2 (0.0-0.7) K/uL Baso # (Auto) 0.0 (0.0-0.1) K/uL Nucleated RBC % 0.0 /100WBC Nucleated RBCs # 0 K/uL Sodium 139 (136-145) mmol/L Potassium 3.8 (3.5-5.1) mmol/L Chloride 106 (98-107) mmol/L Carbon Dioxide 24.8 (21.0-32.0) mmol/L BUN 7 (7.0-18.0) mg/dL Creatinine 0.9 (0.6-1.0) mg/dL Est Cr Clr Drug Dosing 77.67 mL/min Estimated GFR (MDRD) > 60.0 ml/min Glucose 102 (74-106) mg/dL Calcium 9.6 (8.5-10.1) mg/dL Total Bilirubin 0.3 (0.2-1.0) mg/dL AST 11 L (15-37) IU/L ALT 23 (14-63) IU/L Alkaline Phosphatase 58 (46-116) U/L Total Protein 7.2 (6.4-8.2) g/dL Albumin 3.7 (3.4-5.0) g/dL Globulin 3.5 (2.6-4.0) g/dL Albumin/Globulin Ratio 1.1 (0.9-1.6) Urine Color YELLOW Urine Appearance SLT CLOUDY Urine pH 8.5 H (5.0-8.0) Ur Specific [place] 1.015 (1.001-1.035) Urine Protein TRACE H (NEGATIVE) mg/dL Urine Glucose (UA) NEGATIVE (NEGATIVE) mg/dL Urine Ketones NEGATIVE (NEGATIVE) mg/dL Urine Occult Blood NEGATIVE (NEGATIVE) Urine Nitrite NEGATIVE (NEGATIVE) Urine Bilirubin NEGATIVE (NEGATIVE) Urine Urobilinogen 0.2 (<2.0) EU/dL Ur Leukocyte Esterase NEGATIVE (NEGATIVE) Urine RBC 0-2 (0-2/HPF) Urine WBC 0-3 (0-5/HPF) Ur Epithelial Cells MODERATE (NONE-FEW) Amorphous Sediment MANY (NEGATIVE) Urine Bacteria FEW (NEGATIVE) Urine HCG, Qual (NEGATIVE) 09/28/18 Range/Units 03:40 WBC (4.0-11.0) K/uL RBC (4.30-5.90) M/uL Hgb (12.0-16.0) g/dL Hct (36.0-46.0) % MCV (80.0-98.0) fL MCH (27.0-32.0) pg MCHC (31.0-37.0) g/dL RDW Std Deviation (28.0-62.0) fl RDW Coeff of Bonnie (11.0-15.0) % Plt Count (150-400) K/uL MPV (7.40-12.00) fL Neut % (Auto) (48.0-80.0) % Lymph % (Auto) (16.0-40.0) % [place] % (Auto) (0.0-15.0) % Eos % (Auto) (0.0-7.0) % Baso % (Auto) (0.0-1.5) % Neut # (Auto) (1.4-5.7) K/uL Lymph # (Auto) (0.6-2.4) K/uL [place] # (Auto) (0.0-0.8) K/uL Eos # (Auto) (0.0-0.7) K/uL Baso # (Auto) (0.0-0.1) K/uL Nucleated RBC % /100WBC Nucleated RBCs # K/uL Sodium (136-145) mmol/L Potassium (3.5-5.1) mmol/L Chloride (98-107) mmol/L Carbon Dioxide (21.0-32.0) mmol/L BUN (7.0-18.0) mg/dL Creatinine (0.6-1.0) mg/dL Est Cr Clr Drug Dosing mL/min Estimated GFR (MDRD) ml/min Glucose (74-106) mg/dL Calcium (8.5-10.1) mg/dL Total Bilirubin (0.2-1.0) mg/dL AST (15-37) IU/L ALT (14-63) IU/L Alkaline Phosphatase (46-116) U/L Total Protein (6.4-8.2) g/dL Albumin (3.4-5.0) g/dL Globulin (2.6-4.0) g/dL Albumin/Globulin Ratio (0.9-1.6) Urine Color Urine Appearance Urine pH (5.0-8.0) Ur Specific [place] (1.001-1.035) Urine Protein (NEGATIVE) mg/dL Urine Glucose (UA) (NEGATIVE) mg/dL Urine Ketones (NEGATIVE) mg/dL Urine Occult Blood (NEGATIVE) Urine Nitrite (NEGATIVE) Urine Bilirubin (NEGATIVE) Urine Urobilinogen (<2.0) EU/dL Ur Leukocyte Esterase (NEGATIVE) Urine RBC (0-2/HPF) Urine WBC (0-5/HPF) Ur Epithelial Cells (NONE-FEW) Amorphous Sediment (NEGATIVE) Urine Bacteria (NEGATIVE) Urine HCG, Qual NEGATIVE (NEGATIVE) Meds: Medications Discontinued Medications Generic Name Dose Route Start Last Admin Trade Name Freq PRN Reason Stop Dose Admin Sodium Chloride 1,000 mls @ 999 mls/hr 09/28/18 02:11 09/28/18 02:58 Normal Saline IV 09/28/18 03:11 999 mls/hr STAT ONE Administration Metoclopramide HCl 10 mg 09/28/18 02:50 09/28/18 03:05 Reglan IV 09/28/18 02:51 10 mg ONETIME ONE Administration Departure - Departure Time of Disposition: 04:16 Disposition: Home, Self-Care 01 Condition: Good Clinical Impression: Irritable bowel syndrome - Discharge Information Referrals: Ryann Chapin NP [Primary Care Provider] - Additional Instructions: The following information is given to patients seen in the emergency department who are being discharged to home. This information is to outline your options for follow-up care. We provide all patients seen in our emergency department with a follow-up referral. The need for follow-up, as well as the timing and circumstances, are variable depending upon the specifics of your emergency department visit. If you don't have a primary care physician on staff, we will provide you with a referral. We always advise you to contact your personal physician following an emergency department visit to inform them of the circumstance of the visit and for follow-up with them and/or the need for any referrals to a consulting specialist. The emergency department will also refer you to a specialist when appropriate. This referral assures that you have the opportunity for follow-up care with a specialist. All of these measure are taken in an effort to provide you with optimal care, which includes your follow-up. Under all circumstances we always encourage you to contact your private physician who remains a resource for coordinating your care. When calling for follow-up care, please make the office aware that this follow-up is from your recent emergency room visit. If for any reason you are refused follow-up, please contact the [facility] emergency department at and asked to speak to the emergency department charge nurse. - My Orders Last 24 Hours: My Active Orders 09/28/18 02:10 Abdomen 2V AP Flat Upright [CR] Stat - Assessment/Plan Last 24 Hours: My Active Orders 09/28/18 02:10 Abdomen 2V AP Flat Upright [CR] Stat
[2018-09-28] MEDS ORDERED: Metoclopramide 10 MG/2 ML SDV IV ONE (02:50)
[2018-09-28 02:55] LABS: CHLORIDE,CL 106 mmol/L (98-107); SODIUM,NA 139 mmol/L (136-145)
--- NOTE | 2018-09-28 04:48 | CR ---
INDICATION: Pain TECHNIQUE: Abdomen 2 view. COMPARISON: None FINDINGS: Bowel: Bowel pattern is normal. Soft tissues: No sign of free air. No sign of soft tissue mass. No suspicious calcifications. Surgical clips right upper quadrant. Bones: Unremarkable for age. IMPRESSION: Unremarkable abdomen. Dictated by Refugio Santana MD @ 09/28/2018 4:45:44 AM Dictated by: Refugio Santana MD @ 09/28/2018 04:45:51 (Electronically Signed)
[2018-09-28 04:52] VITALS: BP 121/66
== END 2018-09-28 04:48 | disposition home or self-care (01) ==
LOC: MW.ED 02:01
DX: K58.9 Irritable bowel syndrome, unspecified (principal); K21.9 Gastro-esophageal reflux disease without esophagitis; F41.9 Anxiety disorder, unspecified; F32.9 Major depressive disorder, single episode, unspecified; Z88.1 Allergy status to other antibiotic agents; Z88.5 Allergy status to narcotic agent; Z88.2 Allergy status to sulfonamides; Z79.899 Other long term (current) drug therapy
CPT/HCPCS: 36415; 74019; 80053; 81001; 81025; 85025; 96361; 96374; 99284; J2765; J7040; 99283